=== PATIENT | male | born 1950 | race Asian ===

== ENCOUNTER 2019-03-07 11:21 | Outpatient (CLI) | payer OTHER | END 2019-03-07 23:27 | disposition home or self-care (01) | LOC: RAD 11:21 → LABW 11:21 → RAD 23:27 | DX: M05.79 Rheumatoid arthritis with rheumatoid factor of multiple sites without organ or systems involvement (principal) ==

== ENCOUNTER 2019-07-10 09:28 | Outpatient (CLI) | payer OTHER | END 2019-07-10 21:14 | disposition home or self-care (01) | LOC: RESP 09:28 | DX: M05.79 Rheumatoid arthritis with rheumatoid factor of multiple sites without organ or systems involvement (principal); M10.09 Idiopathic gout, multiple sites; M85.89 Other specified disorders of bone density and structure, multiple sites; R70.0 Elevated erythrocyte sedimentation rate; R76.0 Raised antibody titer; Z68.32 Body mass index [BMI] 32.0-32.9, adult; Z79.899 Other long term (current) drug therapy ==

== ENCOUNTER 2020-04-01 13:38 | Outpatient (CLI) | payer OTHER | END 2020-04-01 19:24 | disposition home or self-care (01) | LOC: RESP 13:38 | DX: E55.9 Vitamin D deficiency, unspecified (principal); E56.8 Deficiency of other vitamins; M05.79 Rheumatoid arthritis with rheumatoid factor of multiple sites without organ or systems involvement; M10.09 Idiopathic gout, multiple sites; M35.01 Sjogren syndrome with keratoconjunctivitis; M85.89 Other specified disorders of bone density and structure, multiple sites; R70.0 Elevated erythrocyte sedimentation rate; R76.0 Raised antibody titer; Z79.899 Other long term (current) drug therapy ==

== ENCOUNTER 2020-06-14 08:29 | Outpatient (CLI) | payer OTHER | END 2020-06-14 20:28 | disposition home or self-care (01) | LOC: LABW 08:29 | DX: A51.43 Secondary syphilitic oculopathy (principal); H20 Iridocyclitis; M31.6 Other giant cell arteritis ==

== ENCOUNTER 2020-06-17 08:09 | Outpatient (CLI) | payer OTHER | END 2020-06-17 20:24 | disposition home or self-care (01) | LOC: LABW 08:09 → RAD 08:09 | DX: E55.9 Vitamin D deficiency, unspecified (principal); E56.8 Deficiency of other vitamins; M05.79 Rheumatoid arthritis with rheumatoid factor of multiple sites without organ or systems involvement; M10.09 Idiopathic gout, multiple sites; M35.01 Sjogren syndrome with keratoconjunctivitis; M85.89 Other specified disorders of bone density and structure, multiple sites; R76.0 Raised antibody titer; Z79.899 Other long term (current) drug therapy ==

== ENCOUNTER 2020-06-24 13:06 | Outpatient (CLI) | payer OTHER | END 2020-06-24 23:29 | disposition home or self-care (01) | LOC: RESP 13:06 | DX: E55.9 Vitamin D deficiency, unspecified (principal); E56.8 Deficiency of other vitamins; M05.79 Rheumatoid arthritis with rheumatoid factor of multiple sites without organ or systems involvement; M10.09 Idiopathic gout, multiple sites; M35.01 Sjogren syndrome with keratoconjunctivitis; M85.88 Other specified disorders of bone density and structure, other site; R76.0 Raised antibody titer; Z79.899 Other long term (current) drug therapy ==

== ENCOUNTER 2021-07-02 10:09 | Outpatient (CLI) | payer OTHER | END 2021-07-02 20:42 | disposition home or self-care (01) | LOC: RAD 10:09 | PROVIDERS: ATTEND Nurse Practitioner Family | DX: M05.79 Rheumatoid arthritis with rheumatoid factor of multiple sites without organ or systems involvement (principal); M10.09 Idiopathic gout, multiple sites; M35.01 Sjogren syndrome with keratoconjunctivitis; M85.89 Other specified disorders of bone density and structure, multiple sites; R06.02 Shortness of breath ==

== ENCOUNTER 2022-03-31 08:46 | Outpatient (CLI) | payer OTHER | END 2022-03-31 19:52 | disposition home or self-care (01) | LOC: RESP 08:46 | PROVIDERS: ATTEND Nurse Practitioner Family | DX: E11.9 Type 2 diabetes mellitus without complications (principal); M05.79 Rheumatoid arthritis with rheumatoid factor of multiple sites without organ or systems involvement; M10.09 Idiopathic gout, multiple sites; M35.01 Sjogren syndrome with keratoconjunctivitis; Z79.899 Other long term (current) drug therapy ==